=== PATIENT | female | born 1935 ===

== ENCOUNTER 2021-08-20 03:24 | Inpatient (IN) | payer MEDICARE ==
[~2021-08-20] VITALS: Ht 154.9 cm; Wt 56.4 kg
[2021-08-20 03:58] LABS: BASOPHIL 0.5 % (0-2); EOSINOPHIL 2.2 % (0-7); HCT 48.8 % (37.0-47.0); HGB 16.3 g/dl (12.5-16.0); LYMPHOCYTE 19.2 % (15-48); MCH 29.1 pg (25.0-31.0); MCHC 33.4 g/dL (32.0-36.0); MONOCYTE 11.2 % (0-12); MPV 11.2 fL (6.0-9.5); NEUTROPHIL 66.5 % (41-80); NRBC 0; PLT 183 K/uL (150-400); RBC 5.61 M/uL (4.20-5.40); RDW 13.2 % (11.5-14.0); WBC 7.8 K/uL (4.0-10.5)
[2021-08-20 04:10] LABS: ALBUMIN 3.7 g/dL (3.4-5.0); BILIRUBIN - TOTAL 0.5 mg/dL (0.2-1.0); BUN/CREAT RATIO (CALC) 21.2 RATIO; CREATININE 0.8 mg/dL (0.51-0.95); GLOBULIN (CALCULATION) 3.7 g/dL; POTASSIUM 3.7 mmol/L (3.5-5.1); TOTAL PROTEIN 7.4 g/dL (6.4-8.2)
[2021-08-20 05:18] LABS: BILIRUBIN NEGATIVE (NEGATIVE); BLOOD NEGATIVE Ery/uL (NEGATIVE); CLARITY CLEAR (CLEAR); COLOR YELLOW (YELLOW); GLUCOSE (U) NORMAL (NORMAL); LEUKOCYTES NEGATIVE Leu/uL (NEGATIVE); NITRITE NEGATIVE (NEGATIVE); PROTEIN NEGATIVE (NEGATIVE); SPECIFIC GRAVITY >=1.030 (1.001-1.030); UROBILINOGEN 0.2 mg/dL (0.2-1.0)
[2021-08-20] MEDS ORDERED: NORVASC2.5 MG PO (13:16)
[2021-08-20] MEDS ORDERED: ARICEPT 5MG TABL5 MG PO (13:16)
[2021-08-20] MEDS ORDERED: NAMENDA 10MG TA10 MG PO (13:16)
[2021-08-20] MEDS ORDERED: TOPROL XL 25MG25 MG PO (13:17)
[2021-08-20] MEDS ORDERED: ASPIRIN EC81 MG PO (13:17)
[2021-08-21 03:52] LABS: BASOPHIL 0.7 % (0-2); EOSINOPHIL 3.7 % (0-7); HCT 43.5 % (37.0-47.0); HGB 14.5 g/dl (12.5-16.0); LYMPHOCYTE 27.1 % (15-48); MCH 28.9 pg (25.0-31.0); MCHC 33.3 g/dL (32.0-36.0); MCV 86.7 fL (78.0-100.0); MONOCYTE 10.2 % (0-12); MPV 11.1 fL (6.0-9.5); NEUTROPHIL 57.7 % (41-80); NRBC 0; PLT 161 K/uL (150-400); RBC 5.02 M/uL (4.20-5.40); RDW 13.2 % (11.5-14.0); WBC 6.7 K/uL (4.0-10.5)
[2021-08-21 04:09] LABS: BUN/CREAT RATIO (CALC) 21.7 RATIO; CREATININE 0.83 mg/dL (0.51-0.95)
[2021-08-23] MEDS ORDERED: PLAVIX75 MG PO (12:17)
[2021-08-23] MEDS ORDERED: LIPITOR20 MG PO (12:17)
[2021-08-23] MEDS ORDERED: METFORMIN HCL500 MG PO (12:17)
== END 2021-08-23 13:26 | disposition home health service (06) | DRG 65 ==
LOC: FER 03:24 → FTCU 09:37 → FMS 08-22 16:45
PROVIDERS: Internal Medicine; ADMIT Internal Medicine
DX: I63.9 Cerebral infarction, unspecified (principal); G81.91 Hemiplegia, unspecified affecting right dominant side; R29.705 NIHSS score 5; I10 Essential (primary) hypertension; R73.03 Prediabetes; R29.810 Facial weakness; R26.81 Unsteadiness on feet; E78.5 Hyperlipidemia, unspecified; G30.9 Alzheimer's disease, unspecified; F02.80 Dementia in other diseases classified elsewhere, unspecified severity, without behavioral disturbance, psychotic disturbance, mood disturbance, and anxiety; K80.20 Calculus of gallbladder without cholecystitis without obstruction; I71.2 Thoracic aortic aneurysm, without rupture; Z98.890 Other specified postprocedural states; Z98.51 Tubal ligation status; Z28.311 Partially vaccinated for COVID-19; Z79.899 Other long term (current) drug therapy
CPT/HCPCS: 36415; 70450; 70551; 71250; 73700; 80048; 80053; 81003; 83036; 84145; 85025; 93005; 97162; 97166; 97535; Q9967